=== PATIENT | male | born 1985 | race Caucasian/White ===

== ENCOUNTER 2018-01-30 01:14 | Emergency (ER) | payer SELFPAY ==
[~2018-01-30] VITALS: Ht 177.8 cm; Wt 136.1 kg
--- OUTSIDE RECORDS SUMMARY | ~2018-01-30 | XMS | Clinical Summary ---
Demographics + + + | Address | [address] [address] | | | [place] [address] | + + + | Home Phone | | + + + | Preferred Language | Unknown | + + + | Marital Status | Single | + + + | Jew Affiliation | 1013 | + + + | Race | Unknown | + + + | Ethnic Group | Unknown | + + + Author + + + | Author | [facility] | + + + | Organization | [facility] | + + + | Address | Unknown | + + + | Phone | Unavailable | + + + Support + + +---------+ + | Name | Relationship | Address | Phone | + + +---------+ + | Eleanor Kwok | ECON | Unknown | | + + +---------+ + Care Team Providers + +------+ + | Care Hide Puller Name | Role | Phone | + +------+ + | Medicine, [place] | PP | Unavailable | | Family | | | + +------+ + Allergies + + [...] | | | | | (#1) | 8 | | | + + + + [...] +------+-------+ + | MEDICAID | [place] | [id number] | | | [address] | | | N | | | | [place] | | | [place] | | | | [phone] | | | SHIPYARD PAINTING SUPERVISOR | | | | | + +--------+ +------+-------+ + + +--------+ +--------+ + + | Guarantor Name | Accoun | Relation to | Date | Phone | Billing Address | | | t Type | Patient | of | | | | | | | | | | + +--------+ +--------+ + + | VINAY CLEANING | Person | Self | [birth year] | Home: | [address] [address] [address] | | | al/Fam | | 1985 | [phone] | [place] | | | jose antonio | | | [phone] | + +--------+ +--------+ + +
--- OUTSIDE RECORDS SUMMARY | ~2018-01-30 | XMS | Clinical Summary ---
Demographics + + + | Address | [address] [address] | | | [place] [address] | + + + | Home Phone | | + + + | Preferred Language | Unknown | + + + | Marital Status | Single | + + + | Cheondoism Affiliation | 1013 | + + + | Race | Unknown | + + + | Ethnic Group | Unknown | + + + Author + + + | Author | [facility] | + + + | Organization | [facility] | + + + | Address | Unknown | + + + | Phone | Unavailable | + + + Support + + +---------+ + | Name | Relationship | Address | Phone | + + +---------+ + | Eleanor Kwok | ECON | Unknown | | + + +---------+ + Care Team Providers + +------+ + | Care Crate Maker Name | Role | Phone | + +------+ + | Medicine, [place] | PP | Unavailable | | Family [...] +------+-------+ + | MEDICAID | [place] | [id number] | | | [address] | | | N | | | | [place] | | | [place] | | | | [phone] | | | GAS MAIN AND LINE FITTER | | | | | + +--------+ [...] Self | [birth year] | Home: | [address] [facility] [address] | | | al/Fam | | 1985 | [phone] | [place] | | | jose antonio | | | [phone] | [phone] | + +--------+ +--------+ + +
[~2018-01-30 01:14] MED LIST: BACTRIM DS TAB1 EACH PO; CEPHALEXIN500 MG PO; DAY TIME LIQUI1 EAC1 PO; DOCUSATE SODIU100 MG PO; HYDROCODON-ACE1 EAC6 PO; IBUPROFEN600 MG PO; IBUPROFEN800 MG PO; KEFLEX500 MG PO; MOTRIN IB200 MG NG; NORCO 5-325 TA1 EACH PO; PERCOCET 10-321 EACH PO; ROBAXIN500 MG PO; ROBITUSSIN100 MG/5 M PO; SEPTRA DS TABL1 EACH PO; ZOFRAN ODT4 MG PO; ZOFRAN ODT4 MG SL
[2018-01-30] MEDS ORDERED: CYCLOBENZAPRINE10 MG PO (01:39)
== END 2018-01-30 02:07 | disposition home or self-care (01) ==
LOC: ED 01:14
DX: S29.012A Strain of muscle and tendon of back wall of thorax, initial encounter (principal); F17.200 Nicotine dependence, unspecified, uncomplicated; W19.XXXA Unspecified fall, initial encounter; Y93.01 Activity, walking, marching and hiking
CPT/HCPCS: 99283

== ENCOUNTER 2019-01-07 14:52 | Emergency (ER) | payer OTHER ==
[~2019-01-07] VITALS: Ht 177.8 cm; Wt 131.5 kg
[~2019-01-07 14:52] MED LIST changes: +BENADRYL25 MG PO; +CYCLOBENZAPRINE10 MG PO; +TRAMADOL HCL50 MG PO
--- OUTSIDE RECORDS SUMMARY | 2019-01-07 14:56 | XMS ---
PreManage Notification: JONI LESTER Security Learning Developer Events No recent Security Events currently on file CRITERIA MET - [facility] - 2 Visits in 30 Days CARE PROVIDERS Roseann Malone Treatment Current PAC PHONE: Unknown Lulu has no Care Guidelines for this patient. E.Sumit VISIT COUNT (12 MO.) 3 [facility] TOTAL 3 NOTE: Visits indicate total known visits. ED/UCC VISIT TRACKING (12 MO.) 01/07/2019 14:53 [facility] [place] TYPE: Emergency COMPLAINT: - LOWER BACK PAIN 01/04/2019 23:03 [facility] [place] TYPE: Emergency COMPLAINT: - BACK INJURY 01/30/2018 01:14 [facility] [place] TYPE: Emergency COMPLAINT: - NECK PAIN/INJURY DIAGNOSES: - Unspecified fall, initial encounter - Nicotine dependence, unspecified, uncomplicated - Activity, walking, marching and hiking - Strain of muscle and tendon of back wall of thorax, initial encounter - Cervicalgia INPATIENT VISIT TRACKING (12 MO.) No inpatient visits to display in this time frame [email or web address]
== END 2019-01-07 17:01 | disposition home or self-care (01) ==
LOC: ED 14:52
DX: S39.92XA Unspecified injury of lower back, initial encounter (principal); F17.200 Nicotine dependence, unspecified, uncomplicated; X50.1XXA Overexertion from prolonged static or awkward postures, initial encounter
CPT/HCPCS: 72100; 99283; 99406

== ENCOUNTER 2019-01-12 19:42 | Emergency (ER) | payer OTHER ==
[~2019-01-12] VITALS: Ht 177.8 cm; Wt 131.5 kg
--- OUTSIDE RECORDS SUMMARY | 2019-01-12 19:44 | XMS ---
PreManage Notification: JONI LESTER Security Road Grader Events No recent Security Events currently on file CRITERIA MET - Group Notification - [facility] - Has Care Guidelines - [facility] - 2 Visits in 30 Days CARE PROVIDERS Roseann Malone Current PAC PHONE: Unknown Lulu has no Care Guidelines for this patient. Care History Medical/Surgical 01/08/2019 [facility] Care Recommendation: - Patient DOES NOT have a PCP. - Please refer patient to [place] [facility]: [address] [place] [address], [place], [place] [address] This patient has had 5 or more Emergency Department visits in the last 12 months.\T\nbsp; Patient requires education on the scope and purpose of the ED as an acute care provider not a Primary Care Provider and should not be utilized for chronic conditions.\T\nbsp; If patient returns to ED please contact Community Health WorkerMarsha at [phone]. These are guidelines and the provider should exercise clinical judgment when providing care. E.D. VISIT COUNT (12 MO.) 4 [facility] TOTAL 4 NOTE: Visits indicate total known visits. ED/UCC VISIT TRACKING (12 MO.) 01/12/2019 19:42 [facility] [place] TYPE: Emergency COMPLAINT: - BACK PAIN, INJ 01/07/2019 14:53 [facility] [place] TYPE: Emergency COMPLAINT: - LOWER BACK PAIN DIAGNOSES: - Nicotine dependence, unspecified, uncomplicated - Unspecified injury of lower back, initial encounter - Overexertion from prolonged static or awkward postures, initial encounter - Low back pain 01/04/2019 23:03 [facility] [place] TYPE: Emergency COMPLAINT: - BACK INJURY DIAGNOSES: - Low back pain - Nicotine dependence, unspecified, uncomplicated - Lumbago with sciatica, right side 01/30/2018 01:14 [facility] [place] TYPE: Emergency COMPLAINT: - NECK PAIN/INJURY DIAGNOSES: - Unspecified fall, initial encounter - Nicotine dependence, unspecified, uncomplicated - Activity, walking, marching and hiking - Strain of muscle and tendon of back wall of thorax, initial encounter - Cervicalgia INPATIENT VISIT TRACKING (12 MO.) No inpatient visits to display in this time frame [id number]
[2019-01-12] MEDS ORDERED: NORCO 5-325 TA1 EACH PO (20:18)
== END 2019-01-12 20:31 | disposition home or self-care (01) ==
LOC: ED 19:42
DX: M54.5 Low back pain (principal)
CPT/HCPCS: 99283

== ENCOUNTER 2019-01-18 09:55 | Emergency (ER) | payer OTHER ==
[~2019-01-18] VITALS: Ht 177.8 cm; Wt 131.5 kg
--- OUTSIDE RECORDS SUMMARY | 2019-01-18 09:58 | XMS ---
PreManage Notification: JONI LESTER Security Picker And Packer Events No recent Security Events currently on file CRITERIA MET - Group Notification - [facility] - Has Care Guidelines - PDMP - [facility] - 2 Visits in 30 Days CARE PROVIDERS ELVIS GILLESPIE Physician Veneer Jointer Offbearer 01/14/2019-Current PHONE: [phone] Elvis Malone Treatment Current [facility] PHONE: Unknown Lulu has no Care Guidelines for this patient. Care History Medical/Surgical 01/14/2019 [facility] Care Recommendation: This patient has had 5 or more Emergency Department visits in the last 12 months.\T\nbsp; Patient requires education on the scope and purpose of the ED as an acute care provider not a Primary Care Provider and should not be utilized for chronic conditions.\T\nbsp; If patient returns to ED please contact Community Health WorkerMarsha at [phone]. These are guidelines and the provider should exercise clinical judgment when providing care. E.D. VISIT COUNT (12 MO.) 5 CHIAN Reyes TOTAL 5 NOTE: Visits indicate total known visits. ED/UCC VISIT TRACKING (12 MO.) 01/18/2019 09:56 [facility] [place] TYPE: Emergency COMPLAINT: - LOW BACK PAIN 01/12/2019 19:42 [facility] [place] TYPE: Emergency COMPLAINT: - BACK PAIN, INJ DIAGNOSES: - Low back pain 01/07/2019 14:53 [facility] [place] TYPE: Emergency [...] visits to display in this time frame [email or web address]
[2019-01-18] MEDS ORDERED: ROBAXIN-750750 MG PO (10:42)
[2019-01-18] MEDS ORDERED: LIDODERM1 EACH TOP (10:44)
== END 2019-01-18 10:53 | disposition home or self-care (01) ==
LOC: ED 09:55
DX: M54.5 Low back pain (principal); F17.200 Nicotine dependence, unspecified, uncomplicated
CPT/HCPCS: 99283

== ENCOUNTER 2019-04-26 19:57 | Emergency (ER) | payer SELFPAY ==
--- OUTSIDE RECORDS SUMMARY | ~2019-04-26 | XMS | Clinical Summary ---
Demographics + + + | Address | [address] [address] | | | [place] [address] | + + + | Home Phone | | + + + | Preferred Language | Unknown | + + + | Marital Status | Single | + + + | Restorationist Affiliation | 1013 | + + + | Race | Unknown | + + + | Ethnic Group | Unknown | + + + Author + + + | Author | [facility] (Historical as of | | | 01-05-19) | + + + | Organization | [facility] (Historical as of | | | 01-05-19) | + + + | Address | Unknown | + + + | Phone | Unavailable | + + + Support + + +---------+ + | Name | Relationship | Address | Phone | + + +---------+ + | Eleanor Kwok | ECON | Unknown | | + + +---------+ + Care Team Providers + +------+ + | Care Multi Media Specialist Name | Role | Phone | + +------+ + | Dr. 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 | + + + | Orchalgia | 07/30/2014 | + + + Social History + +-------+ +--------+------+ | Tobacco Use | Types | Packs/Day | Years | Date | | | | | Used | | + +-------+ +--------+------+ | Former Smoker | | 0.25 | 2 | | + +-------+ +--------+------+ + +---+---+---+ | Smokeless Tobacco: | | | | | Never Used | | | | + +---+---+---+ + + +---------+ + | Alcohol Use | Drinks/We | oz/Week | Comments | | | ek | | | + + +---------+ + | Yes | | | rarely | + + +---------+ + + + + | Sex Assigned at | Date Recorded | | | | + + + | Not on file | | + + + Last Filed Vital Signs + + + + | Vital Sign | Reading | Time Taken | + + + + | Blood Pressure | 110/59 | 08/12/2014 4:00 PM PDT | + + + + | Pulse | 73 | 08/12/2014 4:00 PM PDT | + + + + | Temperature | 37.2 C (99 F) | 08/12/2014 4:00 PM PDT | + + + + | Respiratory Rate | 16 | 08/12/2014 4:00 PM PDT | + + + + | Oxygen Saturation | 95% | 08/12/2014 4:00 PM PDT | + + + + | Inhaled Oxygen | - | - | | Concentration | | | + + + + | Weight | 140.1 kg (308 lb | 08/12/2014 12:23 PM PDT | | | 13.8 oz) | | + + + + | Height | 177.8 cm (5' 10") | 08/12/2014 12:23 PM PDT | + + + + | Body Mass Index | 44.32 | 08/12/2014 12:23 PM PDT | + + + + Plan of Treatment + + + + + | Health Maintenance | Due Date | Last Done | Comments | + + + + + | Vaccine: | | | | | Dtap/Tdap/Td (1 - | 7 | | | | Tdap) | | | | + + + + + | Vaccine: Influenza | | | | | (#1) | 9 | | | + + + + + Results Not on filefrom Last 3 Months Insurance + +--------+ +------+-------+ + | Payer | Benefi | Subscriber | Type | Phone | Address | | | t Plan | ID | | | | | | / | | | | | | | Group | | | | | + +--------+ +------+-------+ + | MEDICAID | [place] | [id number] | | | [address] | | | N | | | | [place], [place] | | | [place] | | | | [address] | | | GENERAL PURCHASING AGENT | | | | | + +--------+ +------+-------+ + + +--------+ +--------+ + + | Guarantor Name | Accoun | Relation to | Date | Phone | Billing Address | | | t Type | Patient | of | | | | | | | | | | + +--------+ +--------+ + + | VINAY LESTER | Person | Self | [birth year] | Home: | [address] | | | al/Fam | | 1985 | [phone] | [place], [place] | | | jose antonio | | | [phone] | + +--------+ +--------+ + +
--- OUTSIDE RECORDS SUMMARY | ~2019-04-26 | XMS | Clinical Summary ---
Demographics + + + | Address | [address] [address] | | | [place] [address] | + + + | Home Phone | | + + + | Preferred Language | Unknown | + + + | Marital Status | Single | + + + | Yazdanism Affiliation | 1013 | + + + | Race | Unknown | + + + | Ethnic Group | Unknown | + + + Author + + + | Author | [facility] [employer] (Historical as of | | | 01-05-19) | + + + | Organization | [facility] [employer] (Historical as of | | | 01-05-19) [...] Team Providers + +------+ + | Care Civil Designer Name | Role | Phone | + [...] +------+-------+ + | MEDICAID | [place]ER | [id number] | | | [address] | | | N | | | | [place], [place] | | | [place] | | | | [phone] | | | HARDBOARD PRESS OPERATOR | | | | | + +--------+ [...] Self | [birth year] | Home: | [address] | | | al/Fam | | 1985 | [phone] | [place], [place] | | | j[place] antonio | | | [phone] | + +--------+ +--------+ + +
[~2019-04-26 19:57] MED LIST changes: +LIDODERM1 EACH TOP; +ROBAXIN-750750 MG PO
--- OUTSIDE RECORDS SUMMARY | 2019-04-26 20:04 | XMS ---
PreManage Notification: JONI LESTER Security Cell Maker Events No recent Security Events currently on file CRITERIA MET - Group Notification - [facility] - Has Care Guidelines CARE PROVIDERS ELVIS GILLESPIE Physician Skeet Operator 01/14/2019-Current PHONE: [phone] [address] Preventive Medicine: Occupational 01/22/2019-[facility] PHONE: Unknown Elvis Malone Treatment [facility] PHONE: Unknown Lulu has no Care Guidelines for this patient. Care History Medical/Surgical 01/14/2019 [facility] Care Recommendation: This patient has had 5 or more Emergency Department visits in the last 12 months.\T\nbsp; Patient requires education on the scope and purpose of the ED as an acute care provider not a Primary Care Provider and should not be utilized for chronic conditions.\T\nbsp; If patient returns to ED please contact Community Health Worker Marsha at [phone]. These are guidelines and the provider should exercise clinical judgment when providing care. E.D. VISIT COUNT (12 MO.) 5 [facility] Reyes TOTAL 5 NOTE: Visits indicate total known visits. ED/C VISIT TRACKING (12 MO.) 04/26/2019 19:58 [facility] [place] TYPE: Emergency COMPLAINT: - LOWER BACK PAIN 01/18/2019 09:56 [facility] [place] TYPE: Emergency COMPLAINT: - LOW BACK PAIN DIAGNOSES: - Low back pain - Nicotine dependence, unspecified, uncomplicated 01/12/2019 19:42 [facility] [place] TYPE: Emergency COMPLAINT: - BACK PAIN, INJ DIAGNOSES: - Low back pain 01/07/2019 14:53 [facility] [place] TYPE: Emergency COMPLAINT: - LOWER BACK PAIN DIAGNOSES: - Nicotine dependence, unspecified, uncomplicated - Unspecified injury of lower back, initial encounter - Overexertion from prolonged static or awkward postures, init - Low back pain 01/04/2019 23:03 [facility] [place] TYPE: Emergency COMPLAINT: - BACK INJURY DIAGNOSES: - Low back pain - Nicotine dependence, unspecified, uncomplicated - Lumbago with sciatica, right side INPATIENT VISIT TRACKING (12 MO.) No inpatient visits to display in this time frame [id number]
== END 2019-04-26 21:25 | disposition left against medical advice (07) ==
LOC: ED 19:57
DX: Z53.21 Procedure and treatment not carried out due to patient leaving prior to being seen by health care provider (principal)

== ENCOUNTER 2019-06-01 12:53 | Emergency (ER) | payer OTHER ==
[~2019-06-01] VITALS: Ht 177.8 cm; Wt 131.5 kg
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
[2019-06-01] MEDS ORDERED: [UNRECOGNIZED DRUG - SUPPLY] (13:15)
[2019-06-01] MEDS ORDERED: NORCO 7.5-3251 EACH PO (14:58)
[2019-06-01] MEDS ORDERED: METHYLPREDNISOLO4 M1 PO (14:58)
== END 2019-06-01 15:24 | disposition home or self-care (01) ==
LOC: ED 12:53
DX: M54.41 Lumbago with sciatica, right side (principal); F17.200 Nicotine dependence, unspecified, uncomplicated
CPT/HCPCS: 99283

== ENCOUNTER → 2020-02-05 | Emergency (ER) | payer OTHER ==
[~2020-02-05] VITALS: Ht 177.8 cm; Wt 131.5 kg
[~2020-02-05] MED LIST changes: +DICLOFENAC SODI75 MG PO; +METHYLPREDNISOLO4 M1 PO; +NORCO 7.5-3251 EACH PO; +ULTRAM50 MG PO; +[UNRECOGNIZED DRUG - SUPPLY]
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
== END ==
LOC: ED 17:17
DX: S20.211A Contusion of right front wall of thorax, initial encounter (principal); V43.52XA Car driver injured in collision with other type car in traffic accident, initial encounter; Z87.891 Personal history of nicotine dependence
CPT/HCPCS: 71046; 99284-25

== ENCOUNTER 2020-04-02 09:28 | Emergency (ER) | payer OTHER ==
[~2020-04-02] VITALS: Ht 177.8 cm; Wt 138.7 kg
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
[2020-04-02] MEDS ORDERED: ZOFRAN4 MG PO (12:30)
== END 2020-04-02 12:45 | disposition home or self-care (01) ==
LOC: ED 09:28
DX: F12.188 Cannabis abuse with other cannabis-induced disorder (principal); R11.2 Nausea with vomiting, unspecified; Z87.891 Personal history of nicotine dependence
CPT/HCPCS: 80053; 83690; 85025; 96374; 96375; 99284-25; J1200; J2405; J2550; J2765; J7030

== ENCOUNTER 2020-04-24 15:20 | Emergency (ER) | payer OTHER ==
[~2020-04-24] VITALS: Ht 177.8 cm; Wt 138.3 kg
[~2020-04-24 15:20] MED LIST changes: +ZOFRAN4 MG PO
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
[2020-04-24] MEDS ORDERED: ZOFRAN4 MG PO (18:23)
[2020-04-24] MEDS ORDERED: VENTOLIN HFA18 GM INH (18:23)
== END 2020-04-24 18:36 | disposition home or self-care (01) ==
LOC: ED 15:20
DX: J06.9 Acute upper respiratory infection, unspecified (principal); R19.7 Diarrhea, unspecified; R11.2 Nausea with vomiting, unspecified; Z20.828 Contact with and (suspected) exposure to other viral communicable diseases
CPT/HCPCS: 71045; 99284-25; C9803; U0003

== ENCOUNTER 2020-11-28 12:13 | Emergency (ER) | payer OTHER ==
[~2020-11-28] VITALS: Ht 177.8 cm; Wt 122.5 kg
[~2020-11-28 12:13] MED LIST changes: +VENTOLIN HFA18 GM INH
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
[2020-11-28] MEDS ORDERED: WELLBUTRIN XL300 MG PO (12:27)
--- NOTE | 2020-11-28 13:09 | EKG ---
[facility] [address] [place], [place] [address] Signed Normal sinus rhythm Normal ECG No previous ECGs available Confirmed by HERMES HERMOSILLO MD ([id number]) on 11/28/2020 1:09:13 PM Electronically Signed By: HERMES HERMOSILLO MD 11/28/20 1309 PATIENT NAME: JONI LESTER Electrocardiogram DATE OF : [birth year] PHYSICIAN: HERMES HERMOSILLO MD REPORT #: [id number] REPORT IS CONFIDENTIAL AND NOT TO BE RELEASED WITHOUT AUTHORIZATION
[2020-11-28] MEDS ORDERED: ONDANSETRON ODT8 MG PO (15:40)
== END 2020-11-28 16:00 | disposition home or self-care (01) ==
LOC: ED 12:13
DX: K52.9 Noninfective gastroenteritis and colitis, unspecified (principal); R55 Syncope and collapse; Z87.891 Personal history of nicotine dependence; Z79.899 Other long term (current) drug therapy; Z86.16 Personal history of COVID-19
CPT/HCPCS: 80053; 84484; 85025; 93005; 93010; 96374; 96375; 99285-25; J1790; J2405; J7030

== ENCOUNTER 2021-10-21 19:56 | Emergency (ER) | payer OTHER ==
[~2021-10-21] VITALS: Ht 177.8 cm; Wt 119.8 kg
[~2021-10-21 19:56] MED LIST changes: +ONDANSETRON ODT8 MG PO; +WELLBUTRIN XL300 MG PO
--- OUTSIDE RECORDS SUMMARY | 2021-10-21 20:04 | XMS ---
PreManage Notification: JONI LESTER Security Doctor Of Podiatry Events No recent Security Events currently on file CRITERIA MET - Group Notification CARE PROVIDERS ELVIS GILLESPIE Physician Gear Grinding Machine Operator 01/14/2019-Current PHONE: [phone] [address] Preventive Medicine: Occupational 06/03/2019-[facility] PHONE: Unknown Lulu has no Care Guidelines for this patient. Lianna VISIT COUNT (12 MO.) 2 [facility] Re[facility] TOTAL 2 NOTE: Visits indicate total known visits. ED/UCC VISIT TRACKING (12 MO.) 10/21/2021 19:56 [facility] [place] TYPE: Emergency COMPLAINT: - LT ANKLE INJURY 11/28/2020 12:14 [facility] [place] TYPE: Emergency COMPLAINT: - SOB, DIZZYNESS DIAGNOSES: - Shortness of breath - Syncope and collapse - Other tank terminal gauger (current) drug therapy - Personal history of nicotine dependence - Noninfective gastroenteritis and colitis, unspecified INPATIENT VISIT TRACKING (12 MO.) No inpatient visits to display in this time frame [email or web address]
== END 2021-10-21 22:40 | disposition home or self-care (01) ==
LOC: ED 19:56
DX: S93.402A Sprain of unspecified ligament of left ankle, initial encounter (principal); S93.602A Unspecified sprain of left foot, initial encounter; Z87.891 Personal history of nicotine dependence; Z91.018 Allergy to other foods; W18.40XA Slipping, tripping and stumbling without falling, unspecified, initial encounter; X50.1XXA Overexertion from prolonged static or awkward postures, initial encounter
CPT/HCPCS: 73610; 73630; 99283-25; A9270

== ENCOUNTER 2024-12-10 14:18 | Emergency (ER) | payer OTHER ==
[~2024-12-10] VITALS: Ht 177.8 cm; Wt 110.0 kg
[2024-12-10] MEDS ORDERED: FAMOTIDINE 20 MG/ 2 ML VIAL ONE (14:21)
--- OUTSIDE RECORDS SUMMARY | 2024-12-10 14:25 | XMS ---
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 No recent Security Events currently on file CRITERIA MET - Group Notification CARE PROVIDERS [address] Preventive Medicine: Occupational 06/03/2019-[facility] PHONE: Unknown ELVIS GILLESPIE Physician Senior Oracle Database Administrator 01/14/2019-Current PHONE: [phone] -, [facility] Dentist: Service Station Manager [facility] PHONE: [phone] -Ashley- Dentist: Service Station Manager [facility] PHONE: [phone] [facility] Clinic/Center: Primary [facility] PHONE: [phone] Lulu has no Care Guidelines for this patient. Lianna VISIT COUNT (12 MO.) 1 CHINA Reyes TOTAL 1 NOTE: Visits indicate total known visits. ED/UCC VISIT TRACKING (12 MO.) 12/10/2024 14:18 [facility] [place] TYPE: Emergency COMPLAINT: - WEAKNESS INPATIENT VISIT TRACKING (12 MO.) No inpatient visits to display in this time frame [email or web address]
[2024-12-10] MEDS ORDERED: FAMOTIDINE 20 MG/ 2 ML VIAL IV ONE (15:30)
[2024-12-10] MEDS ORDERED: PREDNISONE20 MG PO (15:41)
[2024-12-10 15:50] VITALS: BP 146/89
[2024-12-10] MEDS ORDERED: EPIPEN 2-P0.3 MG/0.3 IM (15:56)
== END 2024-12-10 16:05 | disposition home or self-care (01) ==
LOC: ED 14:18
DX: T78.04XA Anaphylactic reaction due to fruits and vegetables, initial encounter (principal); Z87.891 Personal history of nicotine dependence; Z91.018 Allergy to other foods; Z90.89 Acquired absence of other organs
CPT/HCPCS: 99284; J2919